=== PATIENT | male | born 1945 | race Caucasian/White ===

== ENCOUNTER 2018-06-17 12:46 | Emergency (ER) | payer OTHER ==
[2018-06-17 12:55] VITALS: BP 115/90; PULSE 77; TEMP 98.5; BMI 29.0
--- NOTE | 2018-06-17 13:58 | PDOC ---
History of Present Illness - General Chief Complaint: Sore Throat Stated Complaint: SORE THROAT/FEVER/SHOULDER PAIN Time Seen by Provider: 06/17/18 13:36 - History of Present Illness Initial Comments: 06/17/18 13:46 CHIEF COMPLAINT: neck pain HISTORY OF PRESENT ILLNESS: 72 yo M with hx of HTN and "enlarged prostate" presents to fast track w/ neck discomfort with movement x 3-4 weeks. Patient also reports "a little sore throat" the past three days but denies any fever, nausea, vomiting, or diarrhea. Patient denies any chest pain, shortness of breath, palpitations, dizziness, blurry vision, headache, or tearing sensation. Patient states he is normally followed by Dr. Barakat. Patient reports that he goes to the gym daily to swim and exercise and states that his neck discomfort is relieved by taking Motrin. No recent travel or sick contacts. PAST MEDICAL HISTORY: Denies past medical history FAMILY HISTORY: Denies SOCIAL HISTORY: Denies tobacco, alcohol, illicit drug use. SURGICAL HISTORY: Denies ALLERGIES: No known drug allergies REVIEW OF SYSTEMS General/Constitutional: Denies fever or chills. Denies weakness, weight change. HEENT: Sore throat. Denies change in vision. Denies ear pain or discharge. Cardiovascular: Denies chest pain or shortness of breath. Respiratory: Denies cough, wheezing, or hemoptysis. Gastrointestinal: Denies nausea, vomiting, diarrhea or constipation. Denies rectal bleeding. Genitourinary: Denies dysuria, frequency, or change in urination. Musculoskeletal: Neck discomfort. Denies joint or muscle swelling or pain. Skin and breasts: Denies rash or easy bruising. Neurologic: Denies headache, vertigo, loss of consciousness, or loss of sensation. PHYSICAL EXAM General Appearance: Well-appearing, appropriately dressed. No apparent distress , no intoxication. HEENT: EOMI, PERRLA, normal ENT inspection, normal voice, TMs normal, pharynx normal. No conjunctival pallor. No photophobia, scleral icterus. Neck: Tenderness to left trapezius on palpation and with lateral rotation of neck. Supple. Trachea midline. No tenderness, rigidity, carotid bruit, stridor , lymphadenopathy, or thyromegaly. Respiratory/Chest: Lungs CTAB. Cardiovascular: RRR. S1, S2. Gastrointestinal/Abdominal: Normal bowel sounds. Abdomen soft, non-distended. No tenderness or rebound tenderness. No organomegaly, pulsatile mass, guarding , hernia, hepatomegaly, splenomegaly. Musculoskeletal/Extremities: See neck. FROM of all extremities, normal capillary refill. Pelvis Stable. No CVA tenderness. No tenderness to extremities, pedal edema, swelling, erythema or deformity. Integumentary: Appropriate color, dry, warm. No cyanosis, erythema, jaundice or rash Neurologic: dye beck reel operator II-XII intact. Fully oriented, alert. Appropriate mood/affect. Motor strength 5/5. No appreciable EOM palsy, facial droop or sensory deficit. 06/17/18 14:02 Past History - Past Medical History Allergies/Adverse Reactions: Allergies Allergy/AdvReac Type Severity Reaction Status Date / Time No Known Allergies Allergy Verified 06/17/18 12:54 Home Medications: Ambulatory Orders Amlodipine Besylate [Norvasc -] 5 mg PO DAILY 06/17/18 Cyclobenzaprine HCl 7.5 mg PO HS #10 tablet 06/17/18 Finasteride [Proscar -] 5 mg PO DAILY 06/17/18 Tamsulosin HCl 0.4 mg PO DAILY 06/17/18 COPD: No Disorders: Yes (enlarged prostate) HTN: Yes - Suicide/Smoking/Psychosocial Hx Smoking History: Never smoked *Physical Exam - Vital Signs Last Vital Signs Temp Pulse Resp BP Pulse Ox 98.5 F 77 18 115/90 99 06/17/18 12:51 06/17/18 12:51 06/17/18 12:51 06/17/18 12:51 06/17/18 12:51 Medical Decision Making - Medical Decision Making 06/17/18 13:58 72 yo M with hx of HTN and "enlarged prostate" presents to fast track w/ neck discomfort with movement. -valium. toradol *DC/Admit/Observation/Transfer Diagnosis at time of Disposition: Neck muscle strain Qualifiers: Encounter type: initial encounter Qualified Code(s): S16.1XXA - Strain of muscle, fascia and tendon at neck level, initial encounter - Discharge Dispostion Disposition: HOME Condition at time of disposition: Stable Decision to Admit order: No - Prescriptions Prescriptions: Cyclobenzaprine HCl 7.5 mg PO HS #10 tablet - Referrals Referrals: Carter Russo MD [Staff Physician] - - Patient Instructions Printed Discharge Instructions: DI for Neck Pain Additional Instructions: Please take medications as prescribed; follow up with Dr. Russo by the end of the week. If you develop ANY "tearing" pain, vomiting, fever, headache, dizziness, change in vision, chest pain, palpitations, shortness of breath, or ANY new or worsening symptoms, please return to the ER immediately. - Post Discharge Activity
[2018-06-17] MEDS ORDERED: KETOROLAC TROMETHAMINE 60 MG/2 ML VIAL IM ONE (13:59)
[2018-06-17] MEDS ORDERED: KETOROLAC TROMETHAMINE 60 MG/2 ML VIAL ONE (14:02)
== END 2018-06-17 14:12 | disposition home or self-care (01) ==
LOC: JERFT 12:46
PROC: 3E0233Z Introduction of Anti-inflammatory into Muscle, Percutaneous Approach (ICD-10-PCS; principal; 2018-06-17)
DX: S16.1XXA Strain of muscle, fascia and tendon at neck level, initial encounter (principal); X50.9XXA Other and unspecified overexertion or strenuous movements or postures, initial encounter; Y93.89 Activity, other specified; Y92.89 Other specified places as the place of occurrence of the external cause; Y99.8 Other external cause status; I10 Essential (primary) hypertension; N40.0 Benign prostatic hyperplasia without lower urinary tract symptoms
CPT/HCPCS: 96372; 99281-25

== ENCOUNTER 2018-08-31 05:52 | Inpatient (IN) | payer OTHER ==
[2018-08-31] MEDS ORDERED: oxyCODONE HCL 10 MG SUSTAINED ACTING TABLET PO ONE (06:33)
[2018-08-31] MEDS ORDERED: TRANEXAMIC ACID 1000 MG/10 ML VIAL IVPUSH ONE (06:33)
[2018-08-31] MEDS ORDERED: GABAPENTIN 300 MG CAPSULE (FP) PO ONE (06:33)
[2018-08-31] MEDS ORDERED: CEFAZOLIN 2 GM in DEXTROSE 5%-WATER - 50 ML IVPB ONE (06:33)
[2018-08-31] MEDS ORDERED: CELECOXIB 200 MG CAPSULE PO ONE (06:33)
[2018-08-31] MEDS ORDERED: ceFAZolin SODIUM 1 GM VIAL ONE (06:57)
[2018-08-31] MEDS ORDERED: SUCCINYLCHOLINE CHLORIDE 200 MG/10 ML VIAL ONE (07:09)
[2018-08-31 07:15] VITALS: BMI 29.8
[2018-08-31] MEDS ORDERED: BUPIVACAINE HCL/PF 0.5% (5MG/ML) 10 ML VIAL ONE (07:46)
--- NOTE | 2018-08-31 07:49 | HP ---
Satellite [facility] [place] - Chief Complaint Chief Complaint: right knee pain - Past Medical History Allergies/Adverse Reactions: Allergies Allergy/AdvReac Type Severity Reaction Status Date / Time No Known Allergies Allergy Verified 08/31/18 07:12 - Current Medications Current Medications: Home Medications Medication Instructions Recorded Finasteride [Proscar -] 5 mg PO HS 06/17/18 Tamsulosin HCl 0.4 mg PO HS 06/17/18 Amlodipine Bes/Olmesartan Med 1 each PO DAILY 08/17/18 [Amlodipine-Olmesartan 5-40 mg] Multivit-Min/FA/Lycopen/Lutein 1 each PO DAILY 08/17/18 [Centrum Silver Tablet] Satellite Physical Exam - Physical Examination Vital Signs: Vital Signs Period Temp Pulse Resp BP Sys/Croft Pulse Ox Last 24 Hr 98.1 F 62 16 123/56 95 General Appearance: Well Nourished, Well Developed, Alert & Oriented x3 ENT: Clear Lung: Normal air movement Heart: Regular rate & rhythm Extremities: Other (right knee- + swelling, + ttp, decr rom, nvi xrays show grade 4 tricompartmental djd) Neurological: Intact, Alert, Oriented Satellite Impression/Plan - Impression/Plan Impression: right knee djd Operative Procedure: right christos tkr Date to be Performed: 08/31/18
[2018-08-31] MEDS ORDERED: MIDAZOLAM HCL 2 MG/2 ML SINGLE DOSE VIAL ONE (07:54)
[2018-08-31] MEDS ORDERED: BUPIVACAINE LIPOSOME/PF (EXPAREL) 266 MG/20 ML VIAL ONE (07:54)
[2018-08-31] MEDS ORDERED: PROPOFOL 20 ML ONE ×2 (08:32)
[2018-08-31] MEDS ORDERED: VANCOMYCIN 1,000 MG VIAL (RESTRICTED TO ID ONLY) IVPB ONE (09:05)
[2018-08-31] MEDS ORDERED: ePHEDrine SULFATE 50 MG/1 ML AMPULE ONE (09:12)
[2018-08-31] MEDS ORDERED: MAGNESIUM HYDROX 2400MG/30ML ORAL SUSPENSION 30 ML CUP PO PRN (09:59)
[2018-08-31] MEDS ORDERED: ONDANSETRON 4 MG/2 ML VIAL IVPUSH PRN (09:59)
[2018-08-31] MEDS ORDERED: MAG HYDROX/AL HYDROX/SIMETH 30 ML UNIT-DOSE CUP PO PRN (09:59)
[2018-08-31] MEDS ORDERED: LACTATED RINGERS SOLUTION 1,000 ML IV SCH (10:00)
[2018-08-31] MEDS ORDERED: PATIENT'S OWN MEDICATION (NON-FORMULARY) (Amlodipine Bes/Olmesartan Med [Amlodipine-Olmesa PO SCH (10:00)
[2018-08-31] MEDS ORDERED: PATIENT'S OWN MEDICATION (NON-FORMULARY) (Multivit-Min/Fa/Lycopen/Lutein [Centrum Silver T PO SCH (10:00)
--- NOTE | 2018-08-31 10:01 | OP ---
Operative Note - Note: Operative Date: 08/31/18 ([facility]) Pre-Operative Diagnosis: right knee djd Operation: right christos tkr Post-Operative Diagnosis: Same as Pre-op Surgeon: Magdy Thibodeaux Weaving Machine Operator: Andreas Garay Anesthesiologist/MANAGER MERCHANDISING: Anshu Kelsey Anesthesia: Spinal, Local Specimens Removed: bone fragments Estimated Blood Loss (mls): 100 Operative Report Dictated: Yes
[2018-08-31] MEDS ORDERED: oxyCODONE HCL 5 MG TABLET PO PRN ×2 (10:19)
[2018-08-31] MEDS: ACETAMINOPHEN 325 MG TABLET (FP) PO SCH ×2 (10:50→18:36)
[2018-08-31] MEDS: SENNOSIDES/DOCUSATE COMBO (SENNA PLUS) TABLET (UD) PO SCH ×2 (16:03→22:13)
[2018-08-31] MEDS: PANTOPRAZOLE 40 MG TABLET (FP) PO SCH (16:04)
[2018-08-31] MEDS: CEFAZOLIN 2 GM/D5W 2 GM/50 ML ML IVPB SCH (16:04)
--- NOTE | 2018-08-31 16:09 | SPEC ---
DATE OF OPERATION: 08/31/2018 PREOPERATIVE DIAGNOSIS: Degenerative joint disease, right knee. POSTOPERATIVE DIAGNOSIS: Degenerative joint disease, right knee. PROCEDURE: Right total knee replacement cementless with robotic-assisted navigation (MAKOplasty). SURGICAL ATTENDING: Magdy Thibodeaux MD GREEN BUILDING MATERIALS DESIGNER: RAY Black ANESTHESIA: Regional and spinal CLOSURE: A Press-Fit Triathlon knee system with a 6 femur, 7 tibia, 9 polyethylene, a 35 patella; No. 1 Vicryl, fascia; 0 and 2-0 for subcutaneous; and rome for skin. ESTIMATED BLOOD LOSS: Less than 100 mL. COMPLICATIONS: None. CONDITION: To recovery room in stable condition. DESCRIPTION OF OPERATIVE PROCEDURE: Patient was taken to the operating room on August 31, 2018. Regional and spinal anesthesia was administered by the anesthesiologist. IV Kefzol was administered prophylactically prior to the case as well as TXA. The right lower extremity was prepped and draped in the usual sterile fashion. The midline 10- to 12-cm longitudinal incision was made. Hemostasis was achieved with Bovie cautery. Sharp dissection was carried down to the extensor mechanism which was perform the procedure. Medial parapatellar arthrotomy was then performed, leaving a cuff of tissue for later closure. The patella was inverted and the knee was flexed up. The fat pad was excised. Subperiosteal dissection was done on the anteromedial proximal tibia until the knee was able to be brought forward. This was facilitated by taking the ACL, PCL and medial and lateral menisci. Checkpoints were placed in both the femur and in the tibia. Two parallel threaded pins were drilled superior to the knee joint through the already made incision from anterior to posterior just going through the anterior cortex but just engaging but not going through the posterior cortex. Two threaded pins were drilled through 2 small stab incisions in parallel fashion 1 handbreadth below the tibial tubercle through the anterior cortex of the tibia and engaging but not going through the posterior cortex. Both sets of pins were attached to navigation arrays for the ABIEL system. The knee was then registered with the navigation system with center of rotation of the hip, medial and lateral malleoli and multiple sites both on the tibia and on the femur. Confirmation of excellent registration was confirmed by "popping the bubbles." At this time, the knee was thoroughly inspected to remove all osteophytes around the knee. The knee was then tensioned in varus/valgus at both full extension and at 90 degrees of flexion to ascertain our gaps. The virtual position of the components was optimized to ensure equal gaps throughout the range of motion. Once this was performed, the robot was brought into the field, was registered. The bone was cut as per the specifications on both the tibia and on the femur. The box cuts were then made as well. Excellent trial stability was obtained on the femur. The tibial baseplate was allowed to "find itself" and then was clipped into place. Confirmation of excellent external rotation of that component was confirmed by the navigation device as well.The patella was calibered for thickness and cut at the appropriate level. The appropriate lollipop was used to drill 3 holes in the patella and a trial asymmetric patellar button was applied. The knee was taken through a range of motion and found to have excellent stability from full extension to full flexion with excellent tracking of the patella. The trial components were then removed. The lug holes were drilled in the femur. The cementless keel was punched in the tibia. The real Press-Fit components were malleted into place, first with the tibia and then with the femur, and then the patella was crimped into place as well. The real polyethylene liner was then clipped into place. Range of motion, stability and tracking were as described earlier. The knee was thoroughly irrigated with copious amounts of irrigation. Vancomycin powder was placed inside the joint. The medial parapatellar arthrotomy was then closed using No. 1 Vicryl interrupted suture. Post closure of the arthrotomy, the knee was taken through a range of motion and found to have no undue tension on the repair. The subcutaneous was then pulse antibiotic irrigated, closed with 0 and 2-0 Vicryl and 3-0 Monocryl subcuticular with skin glue for the skin. Prior to closure, the checkpoints were removed as were the threaded pins. The tibial pin sites were closed with 4-0 undyed Vicryl. A sterile pressure Aquacel dressing was applied. No tourniquet was used during the case. The total blood loss was approximately 100 mL. No complication. Patient was transferred to recovery in stable condition. Stephany [id number]
[2018-08-31] MEDS: GABAPENTIN 300 MG CAPSULE (FP) PO SCH (22:13)
[2018-08-31] MEDS: oxyCODONE HCL 10 MG SUSTAINED ACTING TABLET PO SCH (22:13)
[2018-08-31] MEDS: TAMSULOSIN HCL 0.4 MG CAP PO SCH (22:13)
[2018-08-31] MEDS: FINASTERIDE 5 MG TABLET (FP) PO SCH (22:14)
[2018-09-01] MEDS: CEFAZOLIN 2 GM/D5W 2 GM/50 ML ML IVPB SCH (00:29)
[2018-09-01] MEDS: ACETAMINOPHEN 325 MG TABLET (FP) PO SCH ×4 (00:29→17:36)
[2018-09-01] MEDS: ASPIRIN 325 MG TABLET PO SCH (08:15)
[2018-09-01 08:33] LABS: HEMATOCRIT 38.8 % (35.4-49); HEMOGLOBIN 13.4 GM/dl (11.7-16.9); MCH 31.4 pg (25.7-33.7); MCHC 34.5 g/dl (32.0-35.9); MEAN PLT VOLUME 8.1 fl (7.5-11.1); PLATELET COUNT 200 K/MM3 (134-434); RBC 4.26 M/mm3 (4.00-5.60); RDW 12.9 % (11.9-15.9); WHITE BLOOD COUNT 11.2 K/mm3 (4.0-10.8)
[2018-09-01] MEDS: amLODIPine BESYLATE 5 MG TABLET (FP) PO SCH (09:37)
[2018-09-01] MEDS: GABAPENTIN 300 MG CAPSULE (FP) PO SCH ×2 (09:37→21:15)
[2018-09-01] MEDS: PANTOPRAZOLE 40 MG TABLET (FP) PO SCH (09:38)
[2018-09-01] MEDS: oxyCODONE HCL 10 MG SUSTAINED ACTING TABLET PO SCH ×2 (09:38→21:16)
[2018-09-01] MEDS: MULTIVITAMINS THER W-MINERALS COMBO TABLET (FP) PO SCH (09:38)
[2018-09-01] MEDS ORDERED: VALSARTAN 160 MG TABLET (UD) PO SCH (10:00)
[2018-09-01] MEDS: SENNOSIDES/DOCUSATE COMBO (SENNA PLUS) TABLET (UD) PO SCH ×2 (13:21→21:15)
--- NOTE | 2018-09-01 19:26 | PN ---
Progress Note (short form) - Note Progress Note: AVSS COMFORTABLE CALF SOFT AND NT NVI AROM KNEE 0-95 + STRAIGHT LEG RAISE ABILITY IMP: DOING WELL PLAN: OOB, PT, WBAT, DC TO HOME TOMORROW
[2018-09-01] MEDS: FINASTERIDE 5 MG TABLET (FP) PO SCH (21:13)
[2018-09-01] MEDS: TAMSULOSIN HCL 0.4 MG CAP PO SCH (21:15)
[2018-09-02] MEDS: ACETAMINOPHEN 325 MG TABLET (FP) PO SCH ×2 (06:25)
[2018-09-02] MEDS: ASPIRIN 325 MG TABLET PO SCH (08:18)
[2018-09-02 09:00] LABS: HEMATOCRIT 33.8 % (35.4-49); HEMOGLOBIN 11.9 GM/dl (11.7-16.9); MCH 32.1 pg (25.7-33.7); MCHC 35.2 g/dl (32.0-35.9); MEAN CELL VOLUME 91.3 fl (80-96); MEAN PLT VOLUME 8.5 fl (7.5-11.1); PLATELET COUNT 168 K/MM3 (134-434); RBC 3.71 M/mm3 (4.00-5.60); RDW 12.7 % (11.9-15.9)
[2018-09-02] MEDS: oxyCODONE HCL 10 MG SUSTAINED ACTING TABLET PO SCH (10:21)
[2018-09-02] MEDS: GABAPENTIN 300 MG CAPSULE (FP) PO SCH (10:21)
[2018-09-02] MEDS: MULTIVITAMINS THER W-MINERALS COMBO TABLET (FP) PO SCH (10:22)
[2018-09-02] MEDS: amLODIPine BESYLATE 5 MG TABLET (FP) PO SCH (10:22)
[2018-09-02] MEDS: SENNOSIDES/DOCUSATE COMBO (SENNA PLUS) TABLET (UD) PO SCH (10:22)
[2018-09-02] MEDS: PANTOPRAZOLE 40 MG TABLET (FP) PO SCH (10:22)
[2018-09-02 11:56] VITALS: BP 130/61; PULSE 86; TEMP 99.5
--- NOTE | 2018-09-06 12:07 | PATH ---
Surgical Pathology Report Patient Name: ALONA GARCIA Med. Rec. #: [id number] /Age/Gender: 1945 (Age: 73) / M Account: [id number] Location: [facility] MED-SURG Taken: 08/31/2018 Received: 08/31/2018 Reported: 09/06/2018 Physicians: Magdy Thibodeaux M.D. Specimen(s) Received RIGHT KNEE BONE Clinical History Right knee osteoarthritis Final Diagnosis KNEE BONE, RIGHT, TOTAL KNEE REPLACEMENT: DEGENERATIVE JOINT DISEASE. Electronically Signed Kay Garcia M.D. Gross Description Received in formalin labeled "right knee bone," is a 12.5 x 10.0 x 2.0 cm aggregate of multiple portions of bone and soft tissue. The tibial plateau measures 8.5 x 6.4 x 1.4 cm. There are multiple areas of eburnation present, measuring up to 2.2 cm in greatest dimension. The remaining articular surfaces are velazco-yellow and diffusely granular. The underlying trabecular bone is yellow and hard. Strategic Account Director sections are submitted in one cassette, following decalcification. 09/03/201809/03/2018
== END 2018-09-02 11:57 | disposition home health service (06) | DRG 470 ==
LOC: FM/S 05:52
PROVIDERS: ADMIT Orthopaedic Surgery; ATTEND Orthopaedic Surgery
PROC: 8E0Y0CZ Robotic Assisted Procedure of Lower Extremity, Open Approach (ICD-10-PCS; 2018-08-31)
PROC: 0SRC0JA Replacement of Right Knee Joint with Synthetic Substitute, Uncemented, Open Approach (ICD-10-PCS; principal; 2018-08-31 08:40)
DX: M17.11 Unilateral primary osteoarthritis, right knee (principal)
CPT/HCPCS: 36415; 73560-TC-RT-FY; 85027; 86803; 88304-TC; 88311-TC; 94760; 97116-GP; 97161-GP

== ENCOUNTER 2020-03-23 18:46 | Emergency (ER) | payer OTHER ==
[2020-03-23 19:08] VITALS: BMI 28.7
--- NOTE | 2020-03-23 19:21 | PDOC ---
History of Present Illness - General Chief Complaint: Urinary Catheter Problem Stated Complaint: SENT BY DOCTOR Time Seen by Provider: 03/23/20 19:21 History Source: Patient Exam Limitations: No Limitations - History of Present Illness Initial Comments: 03/23/20 19:56 HPI: This is a 74 y/o male patient of Dr. Wes Pereira with a PMH of BPH who had a TURP procedue done with insertion of urinary catheter at 12pm today. He has not been able to urinate yet despite drinking a bottle of water. He has had about 150cc drainage of bright red blood. He is complaining of suprapubic fullness and pain. Dr. Wes Pereira sent him in to have the catheter flushed. Denies lightheadedness, blurry vision, loss of consciousness, chest pain, or shortness of breath. ROS: GENERAL/CONSTITUTIONAL: No fever/chills. No weakness. HEAD, EYES, EARS, NOSE AND THROAT: No change in vision or blurry vision. CARDIOVASCULAR: No chest pain or shortness of breath. RESPIRATORY: No cough, wheezing, or hemoptysis. GASTROINTESTINAL: No nausea, vomiting, diarrhea or constipation. Abdominal pain. GENITOURINARY: Blood in huang bag. Unable to drain bladder. MUSCULOSKELETAL: No joint or muscle swelling or pain. No neck or back pain. NEUROLOGIC: No headache, loss of consciousness, or change in strength/sensation. ENDOCRINE: No increased thirst. No abnormal weight change. HEMATOLOGIC/LYMPHATIC: Blood in huang bag. ALLERGIC/IMMUNOLOGIC: No hives or skin allergy. PMH: HTN, DM, HLD, BPH PSx: R. knee Social Hx: Denied Meds: Amlodipine, Tamsulosin, Lipitor Allergies: Denied PE: GENERAL: Awake, alert, and fully oriented. Laying in bed conversational but in some discomfort. in room. HEAD: No signs of trauma EYES: PERRL, EOMI ENT: Hearing grossly normal Moist mucosa NECK: Normal ROM, supple LUNGS: Breath sounds equal, clear to auscultation bilaterally HEART: Regular rate and rhythm, normal S1 and S2 ABDOMEN: Soft, suprapubic tenderness. EXTREMITIES: Normal range of motion, no edema. NEUROLOGICAL: Cranial nerves II through XII grossly intact. Normal speech. SKIN: Warm, Dry GENITAL: Huang in place, approx 150cc of bright red diluted blood in bag. 03/23/20 19:59 MDM: This is a 74 y/o male patient of Dr. Wes Pereira who had a TURP procedure done with insertion of urinary catheter at 12pm today. He has not been able to urinate yet despite drinking a bottle of water. Instead he has had about 150cc drainage of bright red blood. 20cc of saline introduced into the catheter at at time without resistance, however it was painful to the patient. Small pieces of clot were able to be evacuated. POCUS shows full bladder with over 1L of fluid Dr. Wes Pereira was able to irrigate the bladder and remove the remainder of the clots. Patient is much more comfortable and no longer has suprapubic tenderness. Plan for 1L and reevaluate. Pt will see Dr. Wes Pereira tomorrow morning. 03/23/20 22:11 Patient received 1L, no suprapubic pain, huang is draining. Will d/c with follow-up and return precautions. 03/23/20 22:31 Past History - Medical History Allergies/Adverse Reactions: Allergies Allergy/AdvReac Type Severity Reaction Status Date / Time No Known Allergies Allergy Verified 03/23/20 19:00 Home Medications: Ambulatory Orders Finasteride [Proscar -] 5 mg PO HS 06/17/18 Tamsulosin HCl 0.4 mg PO HS 06/17/18 Amlodipine Bes/Olmesartan Med [Amlodipine-Olmesartan 5-40 mg] 1 each PO DAILY 08/17/18 Multivit-Min/FA/Lycopen/Lutein [Centrum Silver Tablet] 1 each PO DAILY 08/17/18 Aspirin [ASA -] 325 mg PO DAILY@0800 tablet 08/31/18 Oxycodone HCl/Acetaminophen [Percocet 5-325 mg Tablet -] 1 - 2 tab PO Q6H #50 tab MDD 8 08/31/18 Anemia: No Asthma: No Cancer: No Cardiac Disorders: No CVA: No COPD: No CHF: No Dementia: No Diabetes: No GI Disorders: No Disorders: Yes (enlarged prostate) HTN: Yes Hypercholesterolemia: No Liver Disease: No Seizures: No Thyroid Disease: No - Surgical History Abdominal Surgery: No Appendectomy: No Cardiac Surgery: No Cholecystectomy: No Lung Surgery: No Neurologic Surgery: No Orthopedic Surgery: Yes (ARTHROSCOPY LEFT KNEE, RIGHT KNEE FX) - Psycho-Social/Smoking History Smoking History: Never smoked Have you smoked in the past 12 months: No Information on smoking cessation initiated: No - Substance Abuse Hx (Audit-C & DAST Scrn) How often the patient has a drink containing alcohol: Never Score: In Men: 4 or > Positive; In Women: 3 or > Positive: 0 Screen Result (Pos requires Nsg. Audit-10AR): Negative In the last yr the pt used illegal drug/Rx for NonMed reason: No Score: Yes response is considered Positive: 0 Screen Result (Positive result requires Nsg. DAST-10): Negative *Physical Exam - Vital Signs Last Vital Signs Temp Pulse Resp BP Pulse Ox 97.3 F L 84 20 108/57 L 100 03/23/20 18:53 03/23/20 18:53 03/23/20 18:53 03/23/20 18:53 03/23/20 18:53 Discharge - Discharge Information Problems reviewed: Yes Clinical Impression/Diagnosis: Hematuria Qualifiers: Hematuria type: gross Qualified Code(s): R31.0 - Gross hematuria Huang catheter problem Qualifiers: Encounter type: initial encounter Qualified Code(s): T83.9XXA - Unspecified complication of genitourinary prosthetic device, implant and graft, initial encounter Condition: Improved Disposition: HOME - Admission No - Follow up/Referral Referrals: Jen Barakat MD [Primary Care Provider] - - Patient Discharge Instructions Patient Printed Discharge Instructions: How to Care for Your Huang Catheter -- Male, DI for Hematuria Additional Instructions: You were evaluated in the emergency department today due to blood in your huang catheter bag. Your huang was irrigated with saline by Dr. Wes Pereira. You were given 1L of fluids for hydration and to ensure that your huang was draining. You have an appointment with Dr. Wes Pereira tomorrow. Please make sure to follow- up with him. Return to the ED with any new or worsening symptoms. Return if you become lightheaded, develop chest pain or shortness of breath, start seeing increased amounts of blood or clots, or if your huang stops draining. - Post Discharge Activity
--- NOTE | 2020-03-23 19:23 | PDOC ---
Attending Attestation - Resident Resident Name: Shirley Nayak - ED Attending Attestation I have performed the following: I have examined & evaluated the patient, The case was reviewed & discussed with the resident, I agree w/resident's findings & plan - HPI HPI: 03/23/20 20:07 see resident hpi - Physicial Exam PE: 03/23/20 20:09 see resident exam - Medical Decision Making 03/23/20 20:09 Is in the room 74-year-old male status post urological procedure now with hematuria and clots causing Zhong malfunction sent in by his urologist for flush Gentle attempts at flushing attempted at the bedside by myself in the emergency department residents, small clots were removed but 1000 cc of urine and debris remained on bedside ultrasound Call placed to patient's urologist who is currently at the bedside Urologist to dispo Discharge - Discharge Information Problems reviewed: Yes Clinical Impression/Diagnosis: Hematuria, Zhong catheter problem - Follow up/Referral Referrals: Jen Barakat MD [Primary Care Provider] - - Patient Discharge Instructions - Post Discharge Activity
[2020-03-23] MEDS ORDERED: SODIUM CHLORIDE 0.9% 500 ML INFUS.BAG IV ONE (20:31)
[2020-03-23 22:46] VITALS: BP 122/57; PULSE 71; TEMP 98.3
== END 2020-03-23 22:47 | disposition home or self-care (01) ==
LOC: JER 18:46
DX: R31.0 Gross hematuria (principal); T83.9XXA Unspecified complication of genitourinary prosthetic device, implant and graft, initial encounter
CPT/HCPCS: 99283-25

== ENCOUNTER 2021-11-03 04:27 | Day surgery (SDC) | payer OTHER ==
[2021-11-03 09:51] VITALS: BMI 30.1
[2021-11-03] MEDS ORDERED: ROPIVACAINE HCL 0.5% 30ML VIAL ONE (10:20)
[2021-11-03] MEDS ORDERED: PROPOFOL 20 ML ONE (11:01)
[2021-11-03] MEDS ORDERED: MIDAZOLAM HCL 2 MG/2 ML SINGLE DOSE VIAL ONE ×2 (11:20)
[2021-11-03] MEDS ORDERED: ceFAZolin SODIUM 1 GM VIAL IVPB ONE (12:05)
[2021-11-03] MEDS ORDERED: ONDANSETRON 4 MG/2 ML VIAL IVPUSH PRN (12:31)
[2021-11-03] MEDS ORDERED: oxyCODONE HCL 5 MG TABLET PO PRN ×2 (12:31)
[2021-11-03] MEDS ORDERED: LACTATED RINGERS SOLUTION 1,000 ML IV SCH (12:45)
[2021-11-03] MEDS ORDERED: ceFAZolin SODIUM 1 GM VIAL ONE (12:50)
[2021-11-03] MEDS ORDERED: ONDANSETRON 4 MG/2 ML VIAL ONE (12:50)
[2021-11-03] MEDS ORDERED: DEXAMETHASONE SOD PHOSPHATE 4 MG/1 ML VIAL ONE (12:50)
[2021-11-03] MEDS ORDERED: KETOROLAC TROMETHAMINE 30 MG/1 ML VIAL ONE (12:59)
[2021-11-03 15:32] VITALS: BP 134/57; PULSE 73; TEMP 96.6
== END 2021-11-03 16:00 | disposition home or self-care (01) ==
LOC: JASU-SURG 04:27
PROVIDERS: ATTEND Orthopaedic Surgery
PROC: 0LM24ZZ Reattachment of Left Shoulder Tendon, Percutaneous Endoscopic Approach (ICD-10-PCS; principal; 2021-11-03 11:30)
PROC: 0RNK4ZZ Release Left Shoulder Joint, Percutaneous Endoscopic Approach (ICD-10-PCS; 2021-11-03 11:30)
DX: M75.102 Unspecified rotator cuff tear or rupture of left shoulder, not specified as traumatic (principal); X58.XXXA Exposure to other specified factors, initial encounter; Y92.9 Unspecified place or not applicable; Y93.9 Activity, unspecified; I10 Essential (primary) hypertension
CPT/HCPCS: 29826; 29827; C1776; 94760